=== PATIENT | female | born 1990 ===

== ENCOUNTER → 2018-02-18 19:31 | Outpatient (REF) | payer OTHER, SELFPAY ==
[2018-02-18 20:49] LABS: HEMOLYSIS < 15 (0-50)
[2018-02-18 20:50] LABS: HEMOLYSIS < 15 (0-50)
[2018-02-18 20:56] LABS: Alanine Aminotransferase 19 IU/L (9-52); Albumin 4.9 g/dL (3.5-5.0); Albumin Globulin Ratio 1.4 (1.0-2.8); Alkaline Phosphatase 66 U/L (38-126); Aspartate Aminotransferase 19 IU/L (14-36); Bilirubin Total 0.6 mg/dL (0.2-1.3); Blood Urea Nitrogen 12 mg/dL (7-17); Calcium 10.2 mg/dL (8.4-10.2); Carbon Dioxide 24 mmol/L (22-32); Chloride 103 mmol/L (98-107); Cholesterol 193 mg/dL (140-199); Estimated Glomerular Filt Rate > 60.0 mL/min (>60); Globulin 3.5 g/dL (1.7-4.1); Glucose 84 mg/dL (70-100); HDL Cholesterol 92 mg/dL (40-60); LDL Cholesterol Calculated 88 mg/dL (<100); Sodium 143 mmol/L (137-145); Total Protein 8.4 g/dL (6.3-8.2); Triglycerides 64 mg/dL (35-150)
[2018-02-18 21:09] LABS: Add Manual Diff / Slide Review NO; Basophils Percent Auto 0.9 % (0-2); Eosinophils Percent Auto 4.5 % (2-4); Hematocrit 38.5 % (36-46); Hemoglobin 12.7 g/dL (12.0-16.0); Mean Corpuscular HGB Conc 32.9 % (30-36); Mean Corpuscular Hemoglobin 29.1 PG (26-34); Mean Corpuscular Volume 88.6 fL (80-100); Monocytes Percent Auto 8.1 % (3-14); Neutrophils Absolute Auto 3400 /uL (3000-5900); Neutrophils Percent Auto 53.5 % (50-75); Platelet Count 352 X10^3/uL (150-400); Red Blood Cell Count 4.35 X10^6/uL (4.0-5.2); White Blood Cell Count 6.4 X10^3/uL (4.5-11.0)
[2018-02-18 21:13] LABS: HCG Quantitative /Beta subunit < 2.39 mIU/mL
[2018-02-18 21:27] LABS: Thyroid Stimulating Hormone 1.23 uIU/mL (0.47-4.68)
[2018-02-18 21:31] LABS: Ferritin 21.3 ng/mL (6.27-137)
[2018-02-18 22:05] LABS: Hemoglobin A1C% w Est Avg Glu 5.1 % (4.0-6.0)
[2018-02-18 22:08] LABS: Total Iron Binding Capacity 328 ug/dL (265-497); Transferrin 301 mg/dL (206-381)
[2018-02-18 22:46] LABS: Iron 152 ug/dL (37-170); Percent Iron Saturation 46 % (15-50)
[2018-02-18 23:04] LABS: Free T3, Triiodothyronine Free 3.76 pg/mL (2.77-5.27)
[2018-02-18 23:05] LABS: Folate 18.9 ng/mL (2.76-20.0)
[2018-02-20 14:47] LABS: Anti Thyroglobulin Antibody 2 IU/mL (< 2); Thyroid Peroxidase Antibodies 371 IU/mL (< 9)
[2018-02-20 16:35] LABS: Triiodothyronine T3 Total 100 ng/dL (76-181)
[2018-02-23 10:50] LABS: Vit B12 Binding Capacity unsat 692 pg/mL (650-1340)
== END ==
LOC: LAB 19:31
PROVIDERS: Visit Provider Nurse Practitioner Acute Care
DX: Z83.49 Family history of other endocrine, nutritional and metabolic diseases (principal)
CPT/HCPCS: 80053; 80061; 82306; 82608; 82728; 82746; 83036; 83540; 83550; 84439; 84443; 84480; 84481; 84702; 85025; 86376; 86800

== ENCOUNTER → 2018-09-17 18:33 | Outpatient (ROUT) | payer OTHER, SELFPAY ==
[2018-09-17 20:17] LABS: Urine N gonorrhoeae NOT DETECTED
[2018-09-17 20:48] LABS: Urine Chlamydia NOT DETECTED
== END ==
PROVIDERS: Visit Provider Nurse Practitioner Acute Care
DX: Z20.2 Contact with and (suspected) exposure to infections with a predominantly sexual mode of transmission (principal)
CPT/HCPCS: 87491; 87591